=== PATIENT | male | born 1955 | race Caucasian/White ===

== ENCOUNTER → 2016-08-20 | Outpatient (CLI) | payer OTHER ==
--- NOTE | 2016-08-20 22:46 | PN ---
A 61-year-old male patient coming in for a compliancy check regarding obstructive sleep apnea. He is known to have severe SUSAN with an AHI of 29, currently on APAP. He is on a pressure minimum of 5, maximum of 20, and he is averaging around 4.3 hours of CPAP use every night. His snoring has resolved. His sleep quality has improved. He is waking up refreshed and he is benefiting from the treatment. He needs to improve his compliance further, especially for using it more than 4 hours, as the patient is hitting this target only 50% of the time. Leak factor is at 7 L. His P90 pressure is at 8.6 and the patient is using AirFit P10 nasal pillows. BP is 104/66, pulse 66, respirations 16, temperature is 97.3. Weight is 188. GENERAL APPEARANCE: Calm, comfortable. HEENT: Overbite. No goiter or neck mass. LUNGS: Clear to auscultation. Heart sounds are regular rate and rhythm. Normal S1, S2. ABDOMEN: Soft, nontender, no organomegaly. EXTREMITIES: No edema. No cyanosis or clubbing. IMPRESSION: Symptomatic obstructive sleep apnea with an apnea-hypopnea index of 29, currently under successful treatment. PLAN: 1. Improving compliance and increase the average hours of CPAP use per night. 2. Keep the same pressure and the same setting. See me back in a year's time in followup.
== END | disposition home or self-care (01) ==
LOC: SLEEP 17:02
PROVIDERS: ATTEND Internal Medicine Critical Care Medicine
DX: G47.33 Obstructive sleep apnea (adult) (pediatric) (principal); Z99.89 Dependence on other enabling machines and devices

== ENCOUNTER 2020-09-27 23:37 | Emergency (ER) | payer BC ==
[2020-09-27 23:45] VITALS: BP 125/78; PULSE 94; RESP 18; TEMP 98.2
[2020-09-28] MEDS ORDERED: MORPHINE SULFATE 4 MG/ML SYRINGE IM STA (00:22)
[2020-09-28] MEDS ORDERED: ACET/COD 300 MG/30 MG STARTER PACK 6 TAB BTL PO STA (00:22)
[2020-09-28] MEDS ORDERED: AMOXIC-POT CLAV 875MG STARTER PACK 2 TAB BTL PO STA (00:22)
[2020-09-28] MEDS ORDERED: KETOROLAC 15 MG/ML 1 ML VIAL IM STA (00:22)
--- NOTE | 2020-09-28 00:25 | ED ---
General Adult HPI - General Chief complaint: Dental/Oral Stated complaint: Dental Pain Time Seen by Provider: 09/27/20 23:47 Source: patient Mode of arrival: ambulatory Limitations: no limitations - History of Present Illness Initial comments: 65-year-old male patient presents to the emergency department today for evaluation of right lower dental pain. Patient states he has a crown to the back molar which is loose. States he is having some issues with a couple weeks ago but pain resolved so he did not follow through with his dentist appointment. Patient states tonight the pain seemed to worsen. Denies taking any pain medication for his symptoms. Denies facial swelling, nausea, vomiting, fever, or chills. Denies any trismus or difficulty swallowing. - Related Data Previous Rx's Medication Instructions Recorded Amoxic-Pot Clav 875-125Mg 1 tab PO Q12HR #20 tablet 09/28/20 [Augmentin 875-125] Ibuprofen [Motrin] 600 mg PO Q8HR PRN #30 tab 09/28/20 Allergies Allergy/AdvReac Type Severity Reaction Status Date / Time No Known Allergies Allergy Verified 09/27/20 23:43 Review of Systems ROS Statement: Those systems with pertinent positive or pertinent negative responses have been documented in the HPI. ROS Other: All systems not noted in ROS Statement are negative. Past Medical History Past Medical History: Prostate Disorder History of Any Multi-Drug Resistant Organisms: None Reported Past Surgical History: Back Surgery, Hernia Repair Past Psychological History: No Psychological Hx Reported Smoking Status: Never smoker Past Alcohol Use History: None Reported Past Drug Use History: None Reported General Exam Limitations: no limitations General appearance: alert, in no apparent distress Eye exam: Present: normal appearance, PERRL, EOMI. Absent: scleral icterus, conjunctival injection, periorbital swelling ENT exam: Present: normal exam, normal oropharynx, mucous membranes moist, TM's normal bilaterally, other (There is crown of tooth #32. Mild gingival erythema surrounding. No evidence for drainable abscess.) Neck exam: Present: normal inspection. Absent: tenderness, meningismus, lymphadenopathy Respiratory exam: Present: normal lung sounds bilaterally. Absent: respiratory distress, wheezes, rales, rhonchi, stridor Cardiovascular Exam: Present: regular rate, normal rhythm, normal heart sounds. Absent: systolic murmur, diastolic murmur, rubs, gallop, clicks Neurological exam: Present: alert, oriented X3, CN II-XII intact Psychiatric exam: Present: normal affect, normal mood Skin exam: Present: warm, dry, intact, normal color. Absent: rash Course Vital Signs 09/27/20 23:43 Temperature 98.2 F Pulse Rate 94 Respiratory 18 Rate Blood Pressure 125/78 O2 Sat by Pulse 98 Oximetry Medical Decision Making - Medical Decision Making 65 year-old male patient presenting for right lower dental pain. There is crown covering tooth #32, mild surrounding gingival erythema. No evidence for drainable abscess. He'll be given pain medication here. Started on Augmentin. Antibiotics were sent was pharmacy. He is instructed to follow up with a dentist as soon as possible. Return parameters were discussed in detail. He verbalizes understanding and agrees with this plan. My attending is Dr. Diaz. Disposition Clinical Impression: Pain, dental Disposition: HOME SELF-CARE Condition: Good Instructions (If sedation given, give patient instructions): Toothache (ED) Additional Instructions: Complete the antibiotic prescription in full. Use medications sparingly for severe pain. Follow-up with dentistry as soon as possible. Return for any new, worsening, or concerning symptoms. Prescriptions: Amoxic-Pot Clav 875-125Mg [Augmentin 875-125] 1 tab PO Q12HR #20 tablet Ibuprofen [Motrin] 600 mg PO Q8HR PRN #30 tab PRN Reason: Pain Is patient prescribed a controlled substance at d/c from ED?: No Referrals: Maude García DO [Primary Care Provider] - 1-2 days Time of Disposition: 00:24
== END 2020-09-28 00:58 | disposition home or self-care (01) ==
LOC: EC 23:37
DX: K08.89 Other specified disorders of teeth and supporting structures (principal)
CPT/HCPCS: 96372; 99282

== ENCOUNTER 2023-09-11 08:07 | Day surgery (SDC) | payer BC, MEDICARE ==
--- NOTE | 2023-09-11 08:06 | P.GSHP ---
History of Present Illness H&P Date: 09/11/23 CHIEF COMPLAINT: GERD and colon screen HISTORY OF PRESENT ILLNESS: The patient is a 68-year-old male who presents with gastroesophageal reflux disease and need for colon screen. Upper and lower endoscopy were offered for further evaluation and management. PAST MEDICAL HISTORY: Please see list. PAST SURGICAL HISTORY: Please see list. MEDICATIONS: Please see list. ALLERGIES: Please see list. SOCIAL HISTORY: No illicit drug use FAMILY HISTORY: No reports of Crohn disease or ulcerative colitis. REVIEW OF ORGAN SYSTEMS: CONSTITUTIONAL: No reports of fevers or chills. GI: Denies any blood in stools or constipation. PHYSICAL EXAM: VITAL SIGNS: Stable GENERAL: Well-developed pleasant in no acute distress. HEENT: No scleral icterus. Extraocular movements grossly intact. Moist buccal mucosa. NECK: Supple without lymphadenopathy. CHEST: Unlabored respirations. Equal bilateral excursions. CARDIOVASCULAR: Regular rate and rhythm. Distal 2+ pulses. ABDOMEN: Soft, nondistended. MUSCULOSKELETAL: No clubbing, cyanosis, or edema. ASSESSMENT: 1. Gastroesophageal reflux disease 2. Colon screen. PLAN: 1. Recommend proceeding with an upper and lower endoscopy Past Medical History Past Medical History: Prostate Disorder, Skin Disorder, Sleep Apnea/CPAP/BIPAP, Thyroid Disorder Additional Past Medical History / Comment(s): hypothyroidism, prostate enlargment, current fungal toenail infection - taking lamisil, hx. sleep apnea w/ CPAP use but states he does not have it anymore(hasn't used CPAP since 2013) History of Any Multi-Drug Resistant Organisms: None Reported Past Surgical History: Back Surgery, Hernia Repair Additional Past Surgical History / Comment(s): lower back fusion w/ rods/screws 2009, Lt. inguinal hernia repair, tooth extraction w/ anesthesia, EGD/colonoscopy Past Anesthesia/Blood Transfusion Reactions: No Reported Reaction Smoking Status: Never smoker - Past Family History Brother(s) Family Medical History: Cancer Additional Family Medical History / Comment(s): 2 brothers - prostate cancer Father Family Medical History: Cancer, Hypertension Additional Family Medical History / Comment(s): prostate cancer Medications and Allergies Home Medications Medication Instructions Recorded Confirmed Type Cholecalciferol (Vitamin D3) 50 mcg PO QAM 09/10/23 09/10/23 History [Vitamin D3 (50 Mcg = 2000 Iu)] Finasteride [Proscar] 5 mg PO QAM 09/10/23 09/10/23 History Levothyroxine Sodium [Synthroid] 50 mcg PO QAM 09/10/23 09/10/23 History Terbinafine [LamISIL] 250 mg PO QAM 09/10/23 09/10/23 History Allergies Allergy/AdvReac Type Severity Reaction Status Date / Time No Known Allergies Allergy Verified 09/10/23 10:00
[2023-09-11] MEDS: LACTATED RINGERS 1,000 ML IV SCH (08:40)
[2023-09-11] MEDS ORDERED: PROPOFOL 10 MG/ML 20 ML VIAL IV ONE (09:14)
[2023-09-11 09:15] VITALS: TEMP 97.8
--- NOTE | 2023-09-11 09:30 | P.PCN ---
Date of Procedure: 09/11/23 Description of Procedure: PREOPERATIVE DIAGNOSIS: Gastroesophageal reflux disease. Family history esophageal cancer Dysphagia POSTOPERATIVE DIAGNOSIS: Gastroesophageal reflux disease. Gastritis. Diaphragmatic hiatal hernia OPERATION: Esophagogastroduodenoscopy with biopsies along esophagus, antrum and duodenum SURGEON: Roula Becerril MD ANESTHESIA: MAC. INDICATIONS: The patient is a 46-year-old female who presents with reflux disease. Benefits and risks of the procedure were described. Informed consent was obtained. DESCRIPTION: The patient was brought into the endoscopy suite and laid in the left lateral decubitus position. An Olympus gastroscope was passed along the posterior oropharynx down to the distal esophagus where the squamocolumnar junction was encountered at 42 cm from the incisors. The stomach was entered and no bile reflux was found. Additional findings are listed below. Biopsies with cold forceps were obtained of the antrum. The first through third portion of the duodenum was examined. Retroflexion of the scope confirmed Hill grade 3 lower esophageal valve. The squamocolumnar junction demonstrated LA grade B erosive esophagitis. The stomach was desufflated. The patient tolerated the procedure well. FINDINGS: Squamocolumnar junction 42 cm from the incisors. Diaphragmatic hiatus at 45 cm. Hiatal hernia, 3 cm Hill grade 3 lower esophageal valve. LA grade B erosive esophagitis. Biopsies obtained Biopsies obtained of the duodenum. Chronic gastritis with biopsies obtained. RECOMMENDATIONS: Upper endoscopy as needed.
--- NOTE | 2023-09-11 09:49 | P.PCN ---
Date of Procedure: 09/11/23 Description of Procedure: PREOPERATIVE DIAGNOSIS: Colonoscopy screening. POSTOPERATIVE DIAGNOSIS: Colonoscopy screening. OPERATION: Colonoscopy to the cecum, ileocecal valve and appendiceal orifice. SURGEON: Roula Becerril MD. ANESTHESIA: MAC. INDICATIONS: The patient is a 68-year-old male who presents for colonoscopy screening. Benefits and risks were described and informed consent was obtained. DESCRIPTION OF PROCEDURE: The patient had undergone GoLytely prep. The patient had been brought into the operating room and laid in the left lateral decubitus position. After adequate intravenous sedation, the rectum was examined with 2% lidocaine jelly. Prostate was unremarkable. External hemorrhoids were encountered. The rectal tone was within normal limits. No lesions were palpated in the rectal vault. An Olympus colonoscope was advanced until the cecum, ileocecal valve and appendiceal orifice were clearly viewed. The prep was excellent. No scattered diverticulosis was encountered. No colonic polyps were found. No evidence of focal colitis was found. Retroflexion of the scope demonstrated grade 2 internal hemorrhoids without active bleeding or inflammation. The colon was desufflated. The patient had tolerated the procedure well. Withdrawal time was over 6 minutes. FINDINGS: Aronchick preparation quality scale 1 (1-5) Internal hemorrhoids, grade 2 External prolapsed hemorrhoids, grade 2 No arteriovenous malformations. No adenomatous polyps. No focal colitis. RECOMMENDATIONS: Lower endoscopy in 10 years, 2033 Plan - Discharge Summary Discharge Rx Participant: Yes New Discharge Prescriptions: Continue Finasteride [Proscar] 5 mg PO QAM Cholecalciferol (Vitamin D3) [Vitamin D3 (50 Mcg = 2000 Iu)] 50 mcg PO QAM Terbinafine [LamISIL] 250 mg PO QAM Levothyroxine Sodium [Synthroid] 50 mcg PO QAM Discharge Medication List Cholecalciferol (Vitamin D3) [Vitamin D3 (50 Mcg = 2000 Iu)] 50 mcg PO QAM 09/10/23 [History] Finasteride [Proscar] 5 mg PO QAM 09/10/23 [History] Levothyroxine Sodium [Synthroid] 50 mcg PO QAM 09/10/23 [History] Terbinafine [LamISIL] 250 mg PO QAM 09/10/23 [History] Follow up Appointment(s)/Referral(s): Roula Becerril MD [STAFF PHYSICIAN] - 10/21/23 9:45 am Patient Instructions/Handouts: Hiatal Hernia (DC) Activity/Diet/Wound Care/Special Instructions: Repeat colonoscopy 10 2033 Discharge Disposition: HOME SELF-CARE
[2023-09-11 10:14] VITALS: BP 108/67; PULSE 61; RESP 17
== END 2023-09-11 10:43 | disposition home or self-care (01) ==
LOC: ORWHC2ENDO 08:07
PROVIDERS: ATTEND Surgery Plastic and Reconstructive Surgery
DX: Z12.11 Encounter for screening for malignant neoplasm of colon (principal); K29.50 Unspecified chronic gastritis without bleeding; K44.9 Diaphragmatic hernia without obstruction or gangrene; K21.9 Gastro-esophageal reflux disease without esophagitis; K64.1 Second degree hemorrhoids; G47.33 Obstructive sleep apnea (adult) (pediatric); E03.9 Hypothyroidism, unspecified; Z87.890 Personal history of sex reassignment; Z79.899 Other long term (current) drug therapy; Z82.49 Family history of ischemic heart disease and other diseases of the circulatory system; Z79.890 Hormone replacement therapy
CPT/HCPCS: 88305; 43239; J2704; G0121; 45378

== ENCOUNTER 2024-10-20 09:10 | Emergency (ER) | payer MEDICARE ==
[2024-10-20 09:21] VITALS: RESP 20
[2024-10-20] MEDS: DIPH,PERTUS(ACELL)TETVAC-LF 0.5 ML VIAL IM ONE (09:41)
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
[2024-10-20] MEDS: BACITRACIN OINT 1 EACH PACKET TOPICAL ONE (09:45)
--- NOTE | 2024-10-20 10:34 | CT ---
EXAMINATION TYPE: CT brain bayronine wo con DATE OF EXAM: 10/20/2024 COMPARISON: CLINICAL INDICATION: Male, 69 years old with history of pain; PHH, Fall, head injury TECHNIQUE: CT scan of the head and cervical spine are performed without contrast. CT DLP: 1337.[address] CTDI: mGy Automated exposure control for dose reduction was used. FINDINGS: There is no acute intracranial hemorrhage, mass effect, or midline shift identified. The ventricles and sulci are within normal limits in size. The globes are intact and the visualized sinuses are terrie ar. Moderate scalp hematoma right occipital region. Cervical spine is visualized in its entirety from C1 through upper thoracic levels and demonstrates s atisfactory alignment without evidence of acute fracture or dislocation. Prevertebral soft tissue ap pears within normal limits. The C1-C2 articulation is unremarkable. IMPRESSION: 1. There is no acute fracture or dislocation evident in the cervical spine. 2. No acute intracranial hemorrhage, mass effect, or midline shift is seen. [facility], , 10/20/2024 10:32 AM
[2024-10-20 11:01] VITALS: BP 132/84; PULSE 62; TEMP 97.6
== END 2024-10-20 11:01 | disposition home or self-care (01) ==
LOC: EC 09:10
DX: S00.01XA Abrasion of scalp, initial encounter (principal); Z23 Encounter for immunization; V18.2XXA Unspecified pedal cyclist injured in noncollision transport accident in nontraffic accident, initial encounter
CPT/HCPCS: 70450; 72125; 90471; 90715; 99283

== ENCOUNTER 2024-10-23 10:30 | Emergency (ER) | payer MEDICARE ==
--- NOTE | 2024-10-23 11:27 | ED ---
General Adult HPI - General Chief complaint: Recheck/Abnormal Lab/Rx Stated complaint: Syncope Time Seen by Provider: 10/23/24 10:41 Source: patient, RN notes reviewed Mode of arrival: wheelchair Limitations: no limitations - History of Present Illness Initial comments: This is a 69-year-old male who presents to the emergency department for possible seizure activity. Patient was evaluated here 3 days ago for a head injury. He had a negative CT scan and was discharged home. States that he was told he likely has a concussion and has been having residual headaches. He followed up with his PCP today regarding the headaches and received a shot of Toradol. Almost immediately afterwards he had a syncopal episode and his states that he exhibited some seizure-like activity due to shaking. However, there was no postictal period. Patient denies any history of seizures or similar symptoms in the past. States that he currently feels fine, but was advised to come here for reevaluation as they do not believe this to be related to the Toradol. - Related Data Home Medications Medication Instructions Recorded Confirmed Cholecalciferol (Vitamin D3) 50 mcg PO QAM 09/10/23 09/11/23 [Vitamin D3 (50 Mcg = 2000 Iu)] Finasteride [Proscar] 5 mg PO QAM 09/10/23 09/11/23 Levothyroxine Sodium [Synthroid] 50 mcg PO QAM 09/10/23 09/11/23 Terbinafine [LamISIL] 250 mg PO QAM 09/10/23 09/11/23 Allergies Allergy/AdvReac Type Severity Reaction Status Date / Time No Known Allergies Allergy Verified 10/23/24 10:38 Review of Systems ROS Statement: Those systems with pertinent positive or pertinent negative responses have been documented in the HPI. ROS Other: All systems not noted in ROS Statement are negative. Past Medical History Past Medical History: Prostate Disorder, Skin Disorder, Sleep Apnea/CPAP/BIPAP, Thyroid Disorder Additional Past Medical History / Comment(s): hypothyroidism, prostate enlargment, current fungal toenail infection - taking lamisil, hx. sleep apnea w/ CPAP use but states he does not have it anymore(hasn't used CPAP since 2013) History of Any Multi-Drug Resistant Organisms: None Reported Past Surgical History: Back Surgery, Hernia Repair Additional Past Surgical History / Comment(s): lower back fusion w/ rods/screws 2010, Lt. inguinal hernia repair, tooth extraction w/ anesthesia, EGD/colonoscopy Past Anesthesia/Blood Transfusion Reactions: No Reported Reaction Past Psychological History: No Psychological Hx Reported Smoking Status: Never smoker Past Alcohol Use History: None Reported Past Drug Use History: None Reported - Past Family History Brother(s) Family Medical History: Cancer Additional Family Medical History / Comment(s): 2 brothers - prostate cancer Father Family Medical History: Cancer, Hypertension Additional Family Medical History / Comment(s): prostate cancer General Exam Limitations: no limitations General appearance: alert, in no apparent distress Head exam: Present: atraumatic, normocephalic, normal inspection Eye exam: Present: normal appearance, PERRL, EOMI. Absent: scleral icterus, conjunctival injection, periorbital swelling Respiratory exam: Present: normal lung sounds bilaterally. Absent: respiratory distress, wheezes, rales, rhonchi, stridor Cardiovascular Exam: Present: regular rate, normal rhythm Neurological exam: Present: alert, oriented X3, CN II-XII intact Psychiatric exam: Present: normal affect, normal mood Skin exam: Present: warm, dry, intact, normal color. Absent: rash Course Vital Signs 10/23/24 10/23/24 10:35 13:54 Temperature 98 F 98.9 F Pulse Rate 60 77 Respiratory 20 16 Rate Blood Pressure 103/66 121/84 O2 Sat by Pulse 99 98 Oximetry Medical Decision Making - Medical Decision Making This is a 69-year-old male who presents to the emergency department for a syncopal episode. Was pt. sent in by a medical professional or institution? @ -His PCP Did you speak to anyone other than the patient for history? @ -No Did you review nursing and triage notes? @ -Yes, and I agree, it is accurate with regards to the patient's symptoms. Were old charts reviewed? @ -CT scan of the brain and C-spine from 10/20/2024 revealing no acute intracranial hemorrhage. Differential Diagnosis? @ -Differential Syncope: Valvular disease, hypertrophic cardiomyopathy, pulmonary embolism, tamponade, tachycardia, bradycardia, NC, hypovolemia, hemorrhage, dissection, anemia, intracranial hemorrhage, seizure, hypoglycemia, carbon monoxide poisoning, this is not meant to be an all-inclusive list. EKG interpreted by me (3pts min.)? @ -EKG interpreted by me demonstrating the following: Sinus bradycardia. Ventricular rate 51 bpm, NJ interval 169 ms, QRS duration 102 ms, QTc 384 ms. X-rays interpreted by me (1pt min.)? @ -Not obtained CT interpreted by me (1pt min.)? @ -CT scan of the brain obtained. My interpretation identifies no acute intracranial hemorrhage. U/S interpreted by me (1pt. min.)? @ -Not obtained What testing was considered but not performed? (CT, X-rays, U/S, labs)? Why? @ -None What meds were considered but not given? Why? @ -None Did you discuss the management of the patient with other professionals? @ -No Did you reconcile home meds? @ -No Was smoking cessation discussed for >3mins.? @ -No Was critical care preformed (if so, how long)? @ -No Were there social determinants of health that impacted care today? How? (Homelessness, low income, unemployed, alcoholism, drug addiction, transportation, low edu. Level, literacy, decrease access to med. care, halfway, rehab)? @ -No Was there de-escalation of care discussed even if they declined? (Discuss DNR or withdrawal of care, Hospice)? @ -No What co-morbidities impacted this encounter? (DM, HTN, Smoking, COPD, CAD, Cancer, CVA, Hep., AIDS, mental health diagnosis, sleep apnea, morbid obesity)? @ -None Was patient admitted / discharged? @ -Discharged. Lab work unremarkable. We did repeat a CT scan, and no acute intracranial process was identified. 1 L of IV fluids administered in the emergency department. Patient remained relatively asymptomatic. Advised that he could have had a vasovagal episode from the IM injection or he could have symptoms related to the concussion. Concussion precautions reviewed. Advised follow back up with his PCP for reevaluation. Patient discharged home in stable condition. Case discussed with ED attending Dr. Diaz. Return precautions reviewed in depth, the patient is instructed to return to the emergency department with any new, worsening, or concerning symptoms. Patient verbalized understanding. Undiagnosed new problem with uncertain prognosis? @ -None Drug Therapy requiring intensive monitoring for toxicity (Heparin, Nitro, Insulin, Cardizem)? @ -None Were any procedures done? @ -None Diagnosis/symptom? @ -Syncope, seizure like activity Acute, or Chronic, or Acute on Chronic? @ -Acute Uncomplicated (without systemic symptoms) or Complicated (systemic symptoms)? @ -Uncomplicated Side effects of treatment? @ -None Exacerbation, Progression, or Severe Exacerbation] @ -Not applicable Poses a threat to life or bodily function? @ -Unlikely - Lab Data Result diagrams: 10/23/24 11:41 10/23/24 11:41 Lab Results 10/23/24 10/23/24 10/23/24 Range/Units 11:41 11:41 11:41 WBC 6.56 (4.50-10.00) 10*3/uL RBC 4.87 (4.40-5.60) 10*6/uL Hgb 15.3 (13.0-17.0) g/dL Hct 43.8 (39.6-50.0) % MCV 89.9 (80.0-97.0) fL MCH 31.4 (27.0-32.0) pg MCHC 34.9 (32.0-37.0) g/dL Plt Count 259 (140-440) 10*3/uL MPV 8.6 L (9.5-12.2) fL Immature Gran % (Auto) 0.3 % Neutrophils % 71.2 % Lymphocytes % 18.9 % Monocytes % 8.4 % Eosinophils % 0.6 % Basophils % 0.6 % Immature Gran # 0.02 (0.00-0.04) 10*3/uL Neutrophils # 4.67 (1.80-7.70) 10*3/uL Lymphocytes # 1.24 (0.90-5.00) 10*3/uL Monocytes # 0.55 (0.20-1.00) 10*3/uL Eosinophils # 0.04 (0.04-0.35) 10*3/uL Basophils # 0.04 (0.00-0.10) 10*3/uL Sodium 140 (137-145) mmol/L Potassium 4.5 (3.5-5.1) mmol/L Chloride 102 (98-107) mmol/L Carbon Dioxide 26 (22-30) mmol/L Anion Gap 12 mmol/L BUN 19 (9-20) mg/dL Creatinine 1.26 H (0.66-1.25) mg/dL Est GFR (CKD-EPI)AfAm 67 (>60 ml/min/1.73 sqM) Est GFR (CKD-EPI)NonAf 58 (>60 ml/min/1.73 sqM) Glucose 94 (74-99) mg/dL Plasma Lactic Acid Bob 2.0 (0.7-2.0) mmol/L Calcium 10.2 (8.4-10.2) mg/dL Magnesium 2.1 (1.6-2.3) mg/dL Total Bilirubin 0.8 (0.2-1.3) mg/dL AST 24 (17-59) U/L ALT 11 (4-49) U/L Alkaline Phosphatase 55 (38-126) U/L Troponin I (0.000-0.034) ng/mL Total Protein 7.5 (6.3-8.2) g/dL Albumin 4.6 (3.5-5.0) g/dL 10/23/24 Range/Units 11:41 WBC (4.50-10.00) 10*3/uL RBC (4.40-5.60) 10*6/uL Hgb (13.0-17.0) g/dL Hct (39.6-50.0) % MCV (80.0-97.0) fL MCH (27.0-32.0) pg MCHC (32.0-37.0) g/dL Plt Count (140-440) 10*3/uL MPV (9.5-12.2) fL Immature Gran % (Auto) % Neutrophils % % Lymphocytes % % Monocytes % % Eosinophils % % Basophils % % Immature Gran # (0.00-0.04) 10*3/uL Neutrophils # (1.80-7.70) 10*3/uL Lymphocytes # (0.90-5.00) 10*3/uL Monocytes # (0.20-1.00) 10*3/uL Eosinophils # (0.04-0.35) 10*3/uL Basophils # (0.00-0.10) 10*3/uL Sodium (137-145) mmol/L Potassium (3.5-5.1) mmol/L Chloride (98-107) mmol/L Carbon Dioxide (22-30) mmol/L Anion Gap mmol/L BUN (9-20) mg/dL Creatinine (0.66-1.25) mg/dL Est GFR (CKD-EPI)AfAm (>60 ml/min/1.73 sqM) Est GFR (CKD-EPI)NonAf (>60 ml/min/1.73 sqM) Glucose (74-99) mg/dL Plasma Lactic Acid Bob (0.7-2.0) mmol/L Calcium (8.4-10.2) mg/dL Magnesium (1.6-2.3) mg/dL Total Bilirubin (0.2-1.3) mg/dL AST (17-59) U/L ALT (4-49) U/L Alkaline Phosphatase (38-126) U/L Troponin I <0.012 (0.000-0.034) ng/mL Total Protein (6.3-8.2) g/dL Albumin (3.5-5.0) g/dL - Radiology Data Radiology results: report reviewed, image reviewed Disposition Clinical Impression: Syncope, Seizure-like activity Disposition: HOME SELF-CARE Instructions (If sedation given, give patient instructions): Syncope (ED), Concussion (ED) Additional Instructions: Return to the emergency department with any new, worsening, or concerning symptoms. Follow up with your primary care provider in 1-2 days. Is patient prescribed a controlled substance at d/c from ED?: No Referrals: Maude García DO [Primary Care Provider] - 1-2 days Time of Disposition: 12:52
[2024-10-23 11:54] LABS: Basophils # (A) 0.04 10*3/uL (0.00-0.10); Basophils % (A) 0.6 %; Eosinophils # (A) 0.04 10*3/uL (0.04-0.35); Eosinophils % (A) 0.6 %; HCT 43.8 % (39.6-50.0); HGB 15.3 g/dL (13.0-17.0); Lymphocytes # (A) 1.24 10*3/uL (0.90-5.00); Lymphocytes % (A) 18.9 %; MCH 31.4 pg (27.0-32.0); MCHC 34.9 g/dL (32.0-37.0); MCV 89.9 fL (80.0-97.0); Monocytes # (A) 0.55 10*3/uL (0.20-1.00); Monocytes % (A) 8.4 %; Neutrophils # (A) 4.67 10*3/uL (1.80-7.70); Neutrophils % (A) 71.2 %; Platelet Count 259 10*3/uL (140-440); RBC 4.87 10*6/uL (4.40-5.60); RDW 13.2 % (11.5-14.5); WBC 6.56 10*3/uL (4.50-10.00)
[2024-10-23 12:06] LABS: ALT 11 U/L (4-49); AST 24 U/L (17-59); African American GFR (CKD) 67 (>60 ml/min/1.73 sqM); Albumin 4.6 g/dL (3.5-5.0); Alkaline Phosphatase 55 U/L (38-126); Anion Gap 12 mmol/L; Blood Urea Nitrogen 19 mg/dL (9-20); Calcium 10.2 mg/dL (8.4-10.2); Carbon Dioxide 26 mmol/L (22-30); Chloride 102 mmol/L (98-107); Glucose 94 mg/dL (74-99); Magnesium 2.1 mg/dL (1.6-2.3); Non-African American GFR(CKD) 58 (>60 ml/min/1.73 sqM); Potassium 4.5 mmol/L (3.5-5.1); Sodium 140 mmol/L (137-145); Total Protein 7.5 g/dL (6.3-8.2)
[2024-10-23] MEDS: SODIUM CHLORIDE 0.9% 1,000 ML IV ONE (12:23)
--- NOTE | 2024-10-23 12:37 | CT ---
EXAMINATION TYPE: CT brain wo con DATE OF EXAM: 10/23/2024 12:03 PM COMPARISON: . CLINICAL INDICATION: Male, 69 years old with history of Seizure after head injury, headache/possible seizure TECHNIQUE: Brain: Axial CT images of the brain were obtained with coronal and sagittal reformats created and rev iewed. Contrast used: None. Oral contrast used: None. CT DLP: 1215.4 mGycm, Automated exposure control for dose reduction was used. FINDINGS: Brain: Extra-axial spaces: No abnormal extra-axial fluid collections. Ventricular system: Within normal limits Cerebral parenchyma: No acute intraparenchymal hemorrhage or mass effect. The gunn-white junction is well differentiated. Cerebellum: Unremarkable. Mass effect: No evidence of midline shift. Intracranial vasculature: unremarkable Soft tissues: Scalp high dense area possibly a sebaceous cyst versus enhancing, small hematoma. This measures up to 12 mm and up to 24 mm in caudocranial dimension Calvarium/osseous structures: No depressed skull fracture. Torus palatinus noted. Paranasal sinuses and mastoid air cells: Mild scattered paranasal sinus disease. Visualized orbits: Orbital contents are intact. IMPRESSION: 1. No acute intracranial process. 2. Posterior rightScalp high dense area possibly a sebaceous cyst versus enhancing, small hematoma. This measures up to 12 mm. [facility], , 10/23/2024 12:34 PM
[2024-10-23 13:55] VITALS: BP 121/84; PULSE 77; RESP 16; TEMP 98.9
== END 2024-10-23 13:57 | disposition home or self-care (01) ==
LOC: EC 10:30
DX: R55 Syncope and collapse (principal); R56.9 Unspecified convulsions
CPT/HCPCS: 36415; 70450; 80053; 83605; 83735; 84484; 85025; 93005; 96360; 99284